=== PATIENT | female | born 1990 | race Caucasian/White ===

== ENCOUNTER 2016-06-24 17:41 | Outpatient (CLI) | payer OTHER ==
[~2016-06-24] VITALS: Ht 157.5 cm; Wt 63.0 kg
[~2016-06-24 17:41] MED LIST: ACET50TA PO; IBUP80TA PO
[2016-06-24] MEDS ORDERED: FERR325T3 PO (17:51)
[2016-06-24] MEDS ORDERED: PREN1TAB11 PO (17:51)
[2016-06-24 17:59] VITALS: BP 119/84
== END 2016-06-24 18:52 | disposition home or self-care (01) ==
LOC: M LDO 17:41
PROVIDERS: ATTEND Advanced Practice Midwife
DX: O26.893 Other specified pregnancy related conditions, third trimester (principal); N89.8 Other specified noninflammatory disorders of vagina; Z3A.35 35 weeks gestation of pregnancy

== ENCOUNTER → 2016-07-08 | Outpatient (REF) | payer OTHER ==
[~2016-07-08] MED LIST changes: +FERR325T3 PO; +PREN1TAB11 PO
== END ==
LOC: M LAB REF 17:13
PROVIDERS: ATTEND Specialist
DX: Z34.83 Encounter for supervision of other normal pregnancy, third trimester (principal)

== ENCOUNTER 2016-07-14 22:45 | Outpatient (CLI) | payer OTHER ==
[~2016-07-14] VITALS: Ht 157.5 cm; Wt 65.0 kg
[2016-07-14 22:58] VITALS: BP 118/74
[2016-07-14 23:56] VITALS: BP 109/66
[2016-07-15 01:39] VITALS: BP 112/70
[2016-07-15 02:37] VITALS: BP 101/60
== END 2016-07-15 02:57 | disposition home or self-care (01) ==
LOC: M LDO 22:45
PROVIDERS: ATTEND Advanced Practice Midwife
DX: O47.1 False labor at or after 37 completed weeks of gestation (principal); Z3A.38 38 weeks gestation of pregnancy

== ENCOUNTER 2016-07-20 00:37 | Inpatient (IN) | payer OTHER ==
[~2016-07-20] VITALS: Ht 157.5 cm; Wt 65.0 kg
[2016-07-20] MEDS ORDERED: PRENTAB9 PO (00:46)
[2016-07-20 02:36] LABS: BASO % 0.2 % (0.0-1.0); EOS % 0.6 % (0.0-3.0); LARGE UNSTAINED CELL # 0.2 K/mm3 (0.0-0.4); LARGE UNSTAINED CELL % 1.8 % (0.0-4.0); LYMPH # 2.2 K/mm3 (1.5-6.5); MEAN CORPUSCULAR HEMOGLOBIN 29.8 pg (27.0-33.0); MEAN CORPUSCULAR HGB CONC 34.3 g/dl (32.0-36.5); MEAN CORPUSCULAR VOLUME 86.8 fl (80.0-96.0); MONO # 0.5 K/mm3 (0.0-0.8); MONO % 5.5 % (0.0-5.0); NEUTROPHILS # 6.2 K/mm3 (1.8-7.7); NEUTROPHILS % 69.1 % (36.0-66.0); PLATELET COUNT, AUTOMATED 235 k/mm3 (150-450); RED CELL DISTRIBUTION WIDTH 14.9 % (11.5-14.5)
[2016-07-20] MEDS ORDERED: miSOPROStol 100 MCG TAB (S0191) PO SCH (08:30)
[2016-07-20] MEDS ORDERED: miSOPROStol 50 MCG 1/2 TAB (S0191) PO ONE (09:00)
[2016-07-20] MEDS ORDERED: LR 1,000 ML IV SCH (14:58)
[2016-07-20] MEDS ORDERED: OXYTOCIN DRIP 30 UNITS in APPROPRIATE DILUENT 1 EA IV SCH (15:00)
[2016-07-20] MEDS ORDERED: FENTANYL 2MCG/ML ROPIVACAINE 0.2% NACL 250 ML CADD As Ordered ONE (16:53)
[2016-07-20] MEDS ORDERED: ONDANSETRON 4MG/2ML VIAL (J2405) IV PRN (18:15)
[2016-07-20] MEDS ORDERED: REFRIGERATOR IV KEYS XX PRN (18:15)
[2016-07-20] MEDS ORDERED: EPIDURAL COMMENT XX SCH (18:15)
[2016-07-20] MEDS ORDERED: LACTATED RINGER'S 1000 ML IV PRN (18:15)
[2016-07-20] MEDS ORDERED: diphenhydrAMINE INJ 50MG/ML VIAL (J1200) IV PRN (18:15)
[2016-07-20] MEDS ORDERED: EPIDURAL/PCA KEYS XX PRN (18:15)
[2016-07-20] MEDS ORDERED: FENTANYL/ROPIVACAINE/NACL CADD 250 ML EPIDURAL SCH (18:15)
[2016-07-20] MEDS ORDERED: NALOXONE INJ 0.4 MG/1 ML VIAL (J2310) IV PRN (18:15)
[2016-07-20] MEDS ORDERED: ePHEDrine SULFATE 25 MG/5 ML(5MG/ML) SYRINGE IV PRN (18:15)
--- NOTE | 2016-07-20 20:10 | HPE ---
DATE OF ADMISSION: 07/20/2016 REASON FOR ADMISSION: Induction of labor. HISTORY OF PRESENT ILLNESS: Mrs. Echevarria is a 26-year-old 2, para 1, who presents at 39 weeks 1 day estimated gestational age by last menstrual period, confirmed by first trimester ultrasound for induction of labor. Her course has been remarkable for marginal cord insertion as well as borderline polyhydramnios with amniotic fluid index ([place]) of 24 cm. Otherwise her has been unremarkable. She initiated care in the first trimester and has been appropriate throughout. PAST MEDICAL HISTORY: None. PAST SURGICAL HISTORY: She has had tonsillectomy and adenoidectomy. PAST OBSTETRICAL HISTORY: She is a 2, para 1. She has had one term vaginal delivery, proven 6 pounds 15 ounces. MEDICATIONS: vitamins. ALLERGIES: She has no known drug allergies. SOCIAL HISTORY: Denies any alcohol, tobacco, or drug use during her . She lives with her and her son. PHYSICAL EXAMINATION: VITAL SIGNS: Stable. She is afebrile. GENERAL APPEARANCE: Well appearing in no acute distress. She has category 1 heart rate tracing. LUNGS: Clear to auscultation bilaterally. CARDIOVASCULAR: Heart regular rate and rhythm. ABDOMEN: Soft, gravid, nontender. Estimated weight (EFW) is 3400 grams. CERVICAL: She was 1 cm dilated, 50% effaced, -3 station. LABORATORIES: Blood type is O positive, antibody screen is negative, Rubella is immune, RPR nonreactive. Hepatitis surface antigen is negative. HIV is negative. Hepatitis C is nonreactive. Chlamydia and gonorrhea screens are negative. She had a [place] test, which showed 46XY. She had a normal 1-hour Glucola of 122. She is GBS negative. ASSESSMENT: 1, Mrs. Echevarria is a 26-year-old 2, para 1 who presents at 39 weeks 1 day estimated gestational age for induction of labor. 2. Polyhydramnios. 3. Reassuring status. PLAN: 1. Admit to labor and delivery. Complete blood count (CBC), rapid plasma reagin (RPR), type and screen. 2. Patient has been thoroughly counseled in regard to induction of labor and discussed medications as well as procedures performed in labor and delivery. She has been verbally consented for emergency surgery, blood products, anesthesia, and desires to proceed with admission. Will initiate her induction with 50 mcg of oral misoprostol.
[2016-07-21] MEDS ORDERED: OXYTOCIN DRIP 30 UNITS in APPROPRIATE DILUENT 1 EA IV SCH (01:01)
[2016-07-21] MEDS: IBUPROFEN 800 MG TAB PO PRN ×3 (01:10→21:12)
[2016-07-21] MEDS ORDERED: MEASLES,MUMPS,RUBELLA VACCINE INJ (MMR-II) (90707) SC SCH (01:15)
[2016-07-21] MEDS ORDERED: ANUSOL HC CREAM 30GM TOP PRN (01:15)
[2016-07-21] MEDS ORDERED: MOM 30ML SUSPENSION UDC PO PRN (01:15)
[2016-07-21] MEDS ORDERED: RHOGAM 300 MCG (1500 IU) INJ (J2790) IM SCH (01:15)
[2016-07-21] MEDS ORDERED: DIBUCAINE 1% OINTMENT 30GM TOP PRN (01:15)
[2016-07-21] MEDS ORDERED: METHYLERGONOVINE MALEATE 0.2 MG TAB PO PRN (01:15)
--- NOTE | 2016-07-21 02:46 | DN ---
DATE OF DELIVERY: 07/21/2016 TIME OF : 00:25 GENDER: Male APGARS: 9/10 WEIGHT: 4060 grams, 8 pounds 15 ounces ESTIMATED BLOOD LOSS: 300 mL ANESTHESIA: Epidural. LACERATIONS: Second-degree midline laceration. COUNTS: 5 laparotomy sponges accounted for prior to and after delivery; 2 sharps removed from the delivery field. DELIVERY NOTE: On , at 00:25, Mrs. Echevarria, a 26-year-old 2, now para 2, had a spontaneous vaginal delivery of a liveborn male infant, Apgars 9 and 10, weight 8 pounds 15 ounces, or 4060 grams. Head was delivered left occiput anterior (TRAMAINE), followed by delivery of anterior and posterior shoulder and corpus. was handed to mother with a good cry. Cord was clamped times two, was cut by the father of the baby under my direction. Cord blood was then obtained. Placenta was drained and delivered grossly intact. A premixed bag of 500 mL of normal saline with 30 units of Pitocin was bolused along with uterine massage. On inspection, there was a second-degree midline laceration, which was repaired with 3-0 Vicryl Rapide. Re-inspection of the cervix, vagina, and perineum were grossly intact and hemostatic. Mother and baby recovered in stable condition. The couple decided to name their son
[2016-07-21] MEDS: ACETAMINOPHEN 500 MG TAB PO PRN ×2 (07:49→15:25)
[2016-07-21] MEDS: PRENATAL VITAMIN TAB PO SCH (09:44)
[2016-07-21 10:16] VITALS: BP 104/59
[2016-07-21 18:10] VITALS: BP 106/56
[2016-07-21] MEDS: DOCUSATE SODIUM 100 MG CAP PO PRN (21:11)
[2016-07-22 06:00] VITALS: BP 121/78
[2016-07-22] MEDS: PRENATAL VITAMIN TAB PO SCH (08:35)
[2016-07-22] MEDS: IBUPROFEN 800 MG TAB PO PRN ×2 (08:38→17:06)
[2016-07-22 09:55] VITALS: BP 103/64
[2016-07-22 17:45] VITALS: BP 121/76
[2016-07-22] MEDS: DOCUSATE SODIUM 100 MG CAP PO PRN (20:30)
[2016-07-23] MEDS: IBUPROFEN 800 MG TAB PO PRN ×2 (01:36→10:30)
[2016-07-23 06:20] VITALS: BP 105/63
[2016-07-23] MEDS ORDERED: ACET50TA PO (07:12)
[2016-07-23] MEDS ORDERED: IBUP-1114 PO (07:13)
[2016-07-23] MEDS: PRENATAL VITAMIN TAB PO SCH (09:00)
== END 2016-07-23 11:45 | disposition home or self-care (01) | DRG 775 ==
LOC: M LDI 00:37 → M OBS 07-21 11:50
PROVIDERS: ADMIT Obstetrics & Gynecology; ATTEND Obstetrics & Gynecology
PROC: 3E0DXGC Introduction of Other Therapeutic Substance into Mouth and Pharynx, External Approach (ICD-10-PCS; 2016-07-20)
PROC: 10E0XZZ Delivery of Products of Conception, External Approach (ICD-10-PCS; principal; 2016-07-21)
PROC: 0KQM0ZZ Repair Perineum Muscle, Open Approach (ICD-10-PCS; 2016-07-21)
DX: O40.3XX0 Polyhydramnios, third trimester, not applicable or unspecified (principal); Z37.0 Single live birth; Z3A.39 39 weeks gestation of pregnancy; O70.1 Second degree perineal laceration during delivery

== ENCOUNTER → 2019-01-02 | Outpatient (CLI) | payer OTHER ==
[~2019-01-02] MED LIST changes: -ACET50TA PO; +IBUP-1114 PO; +MAPA500T17 PO; +MAPA500T2 PO; +PRENTAB9 PO
[2019-01-02 14:19] LABS: FREE T4 1.09 NG/DL (0.76-1.46)
[2019-01-02 14:20] LABS: HCG, SERUM QUALITATIVE NEGATIVE (NEGATIVE)
== END ==
LOC: M LAB 12:42
PROVIDERS: ATTEND Advanced Practice Midwife
DX: N92.0 Excessive and frequent menstruation with regular cycle (principal)

== ENCOUNTER → 2019-01-08 | Outpatient (CLI) | payer OTHER ==
--- NOTE | 2019-01-08 16:29 | REP ---
Pelvic ultrasound including transabdominal, endovaginal and Doppler ultrasound assessment for excessive and frequent menstruation. The bladder is minimally distended. The uterus is retroverted and normal size measuring 7.2 by 4.7 x 5.2 cm. The endometrium has a trilaminar appearance compatible with the proliferative phase and measures up to 15 mm thickness which is upper normal. No endometrial cysts or polyps are identified. There is a trace of free fluid in the fundal portion of the endometrial canal. Right ovary: The right ovary is normal size measuring 2.5 x 1.8 x 3.2 cm. There is no dominant mass or cyst. There is vascular flow with the Doppler resistive index of the parenchymal arteries measuring 0.52. Left ovary: The left ovary is normal size measuring 3.6 x 2.1 x 2.5 cm. There is a 1.8 cm left ovarian follicle. There is vascular flow in the left ovary with the Doppler resistive index of the parenchymal arteries measuring 0.34. Impression: Endometrial thickness is upper normal. No endometrial cysts or polyps are identified. There is a 1.8 cm left ovarian follicle. There is vascular flow in both ovaries. The uterus is retroverted. Electronically Signed by Alex Mesa MD 01/08/2019 04:21 P
== END ==
LOC: M RAD 14:23
PROVIDERS: ATTEND Advanced Practice Midwife
DX: N83.02 Follicular cyst of left ovary (principal); N85.4 Malposition of uterus; N92.0 Excessive and frequent menstruation with regular cycle

== ENCOUNTER → 2019-01-31 | Outpatient (REF) | payer OTHER ==
[2019-02-03 15:06] LABS: HPV HYBRID CAPTURE II Negative (Negative)
== END ==
LOC: M LAB REF 17:33
PROVIDERS: ATTEND Advanced Practice Midwife
DX: Z12.4 Encounter for screening for malignant neoplasm of cervix (principal); R85.610 Atypical squamous cells of undetermined significance on cytologic smear of anus (ASC-US)
CPT/HCPCS: 87624; G0123

== ENCOUNTER → 2020-12-03 | Outpatient (CLI) | payer OTHER ==
[2020-12-03 13:37] LABS: GC DNA AMPLIFICATION NEGATIVE (NEGATIVE)
[2020-12-03 13:49] LABS: HIV 1&2 SCREEN CENTAUR NEGATIVE (NEGATIVE)
== END ==
LOC: M WUC 09:29
PROVIDERS: ATTEND Family Medicine
DX: Z11.3 Encounter for screening for infections with a predominantly sexual mode of transmission (principal)

== ENCOUNTER → 2021-04-09 | Outpatient (REF) | payer OTHER | LOC: M LAB REF 13:22 | PROVIDERS: ATTEND Family Medicine | DX: Z12.4 Encounter for screening for malignant neoplasm of cervix (principal) | CPT/HCPCS: 87624; G0123 ==

== ENCOUNTER → 2025-01-04 | Outpatient (CLI) | payer OTHER ==
[2025-01-04 12:53] LABS: BASO # 0.0 10^3/uL (0.0-0.2); BASO % 0.3 % (0.0-1.0); EOS # 0.1 10^3/uL (0.0-0.5); EOS % 0.7 % (0.0-3.0); LYMPH # 2.2 10^3/uL (1.5-5.0); LYMPH % 29.0 % (24.0-44.0); MONO # 0.3 10^3/uL (0.0-0.8); MONO % 4.3 % (2.0-8.0); NEUTROPHILS # 4.9 10^3/uL (1.5-8.5); NEUTROPHILS % 65.4 % (36.0-66.0); PLATELET COUNT, AUTOMATED 293 10^3/uL (150-450)
[2025-01-04 13:00] LABS: ALT/SGPT 28.0 U/L (7.0-40); AST/SGOT 24.0 U/L (<34); CALCIUM LEVEL 9.0 MG/DL (8.5-10.1); CARBON DIOXIDE LEVEL 26.0 MMOL/L (20-31); CHLORIDE LEVEL 105.0 MMOL/L (98-107); CHOLESTEROL LEVEL 230.0 MG/DL (<200); CHOLESTEROL RISK RATIO 4.89 (<5); CREATININE FOR GFR 0.96 MG/DL (0.55-1.30); GLOMERULAR FILTRATION RATE 78.6 (>60); LDL CHOLESTEROL 154.0 MG/DL (<100); NON-HDL-C 183.0 MG/DL; POTASSIUM SERUM 4.2 MMOL/L (3.5-5.1); SODIUM LEVEL 141.0 MMOL/L (136-145); TRIGLYCERIDES LEVEL 145.0 MG/DL (<150)
== END ==
LOC: M WUC 08:28
PROVIDERS: ATTEND Family Medicine
DX: Z00.00 Encounter for general adult medical examination without abnormal findings (principal)